=== PATIENT | female | born 1990 | race African-American/Black ===

== ENCOUNTER 2018-09-12 16:18 | Emergency (ER) | payer OTHER, MEDICAID ==
[~2018-09-12] VITALS: Ht 160 cm; Wt 75.8 kg
[2018-09-12 17:20] VITALS: BP 112/65
== END 2018-09-12 17:20 | disposition home or self-care (01) ==
LOC: M.ERS 16:18
DX: S93.492A Sprain of other ligament of left ankle, initial encounter (principal); W10.9XXA Fall (on) (from) unspecified stairs and steps, initial encounter; Y93.89 Activity, other specified; Y92.89 Other specified places as the place of occurrence of the external cause; Y99.8 Other external cause status

== ENCOUNTER 2018-11-24 01:12 | Emergency (ER) | payer OTHER ==
[~2018-11-24] VITALS: Ht 160 cm; Wt 77.1 kg
[2018-11-24 01:17] VITALS: BP 108/73
[2018-11-24] MEDS ORDERED: AMOXICILLIN 50500 MG PO (01:24)
== END 2018-11-24 01:38 | disposition home or self-care (01) ==
LOC: M.ERS 01:12
DX: H66.93 Otitis media, unspecified, bilateral (principal)

== ENCOUNTER 2020-06-01 23:54 | Emergency (ER) | payer OTHER, MEDICAID ==
[~2020-06-01] VITALS: Ht 160 cm; Wt 68.0 kg
[~2020-06-01 23:54] MED LIST: AMOXICILLIN 50500 MG PO
[2020-06-02 00:55] LABS: ABSOLUTE BASOPHILS 0.1 thou/uL (0.0-0.2); ABSOLUTE EOSINOPHILS 0.2 thou/uL (0.0-0.7); ABSOLUTE LYMPHOCYTES 2.1 thou/uL (0.8-5.3); ABSOLUTE MONOCYTES 0.5 thou/uL (0.0-1.2); ABSOLUTE NEUTROPHILS 4.2 thou/uL (1.6-8.1); BASOPHILS 1.1 %; EOSINOPHILS 2.2 %; HEMATOCRIT 35.7 % (37.0-47.0); LYMPHOCYTES 29.5 %; MCH 29.7 pg (26.0-34.0); MCHC 33.5 g/dL (28.0-37.0); MCV 88.5 fL (80.0-100.0); MONOCYTES 7.4 %; MPV 8.6 fl. (7.2-11.1); NUCLEATED RBCS 0 /100WBC; PLATELET COUNT* 259 thou/uL (150-400); POLYS 59.8 %; RBC 4.03 mil/uL (4.20-5.00)
[2020-06-02 01:22] LABS: CALCIUM 8.7 mg/dL (8.5-10.1); CREATININE 1.2 mg/dL (0.6-1.3); POTASSIUM 3.2 mmol/L (3.5-5.1)
[2020-06-02] MEDS ORDERED: ZOFRAN ODT4 MG PO (04:21)
[2020-06-02 04:32] VITALS: BP 121/61
== END 2020-06-02 04:33 | disposition home or self-care (01) ==
LOC: M.ERS 23:54
PROVIDERS: Emergency Medicine
DX: R11.10 Vomiting, unspecified (principal); T50.995A Adverse effect of other drugs, medicaments and biological substances, initial encounter; Y92.89 Other specified places as the place of occurrence of the external cause

== ENCOUNTER 2021-05-30 13:36 | Emergency (ER) | payer OTHER, MEDICAID ==
[~2021-05-30] VITALS: Ht 160 cm; Wt 74.8 kg
[~2021-05-30 13:36] MED LIST changes: +ZOFRAN ODT4 MG PO
[2021-05-30 15:22] LABS: ABSOLUTE LYMPHOCYTES 1.6 thou/uL (0.8-5.3); ABSOLUTE MONOCYTES 0.3 thou/uL (0.0-1.2); ABSOLUTE NEUTROPHILS 0.7 thou/uL (1.6-8.1); BASOPHILS 0.6 %; EOSINOPHILS 0.8 %; HEMATOCRIT 38.9 % (37.0-47.0); HEMOGLOBIN 13.4 gm/dL (12.0-15.0); LYMPHOCYTES 59.7 %; MCH 29.8 pg (26.0-34.0); MCHC 34.3 g/dL (28.0-37.0); MCV 86.8 fL (80.0-100.0); MONOCYTES 11.7 %; MPV 8.1 fl. (7.2-11.1); NUCLEATED RBCS 0 /100WBC; PLATELET COUNT* 169 thou/uL (150-400); POLYS 27.2 %; RBC 4.48 mil/uL (4.20-5.00); RDW-CV 13.2 % (10.5-14.5); WBC 2.6 thou/uL (4.0-11.0)
[2021-05-30 15:27] LABS: CALCIUM 8.7 mg/dL (8.5-10.1); CREATININE 1.1 mg/dL (0.6-1.3); POTASSIUM 3.8 mmol/L (3.5-5.1)
[2021-05-30 15:32] LABS: ALBUMIN 3.4 g/dL (3.4-5.0); TOTAL BILIRUBIN 0.3 mg/dL (<0.1-1.0); TOTAL PROTEIN 8.1 g/dL (6.4-8.2)
[2021-05-30] MEDS ORDERED: DOXYCYCLINE 10100 M2 PO (17:17)
[2021-05-30] MEDS ORDERED: ZOFRAN ODT4 MG PO (17:17)
[2021-05-30] MEDS ORDERED: MEDROLDOSEPACK PO (17:17)
[2021-05-30 17:30] VITALS: BP 124/90
== END 2021-05-30 17:32 | disposition home or self-care (01) ==
LOC: M.ERS 13:36
PROVIDERS: Physician Assistant
DX: R10.13 Epigastric pain (principal); R10.33 Periumbilical pain; R11.2 Nausea with vomiting, unspecified; R05.9 Cough, unspecified; Z88.2 Allergy status to sulfonamides